=== PATIENT | female | born 1985 | race Caucasian/White ===

== ENCOUNTER 2017-06-11 05:16 | Emergency (ER) | payer SELFPAY ==
[~2017-06-11] VITALS: Ht 165.1 cm; Wt 76.0 kg
[2017-06-11 05:35] VITALS: Ht 165.1 cm; Wt 76.0 kg
[2017-06-11 06:48] LABS: BASOPHIL # 0.1 10^3/ul (0.0-0.1); BASOPHILS % 0.6 % (0.0-2.0); EOSINOPHILS # 0.2 10^3/ul (0.0-0.5); EOSINOPHILS % 2.8 % (0.0-7.0); HEMATOCRIT 37.7 % (37.0-47.0); HEMOGLOBIN 12.6 g/dl (12.0-16.0); LYMPHOCYTES # 1.7 10^3/ul (0.8-2.9); LYMPHOCYTES % 21.2 % (15.0-51.0); MEAN CORPUSCULAR HEMOGLOBIN 27.8 pg (29.0-33.0); MEAN CORPUSCULAR HGB CONC 33.4 g/dl (32.0-37.0); MEAN CORPUSCULAR VOLUME 83.2 fl (82.0-101.0); MEAN PLATELET VOLUME 9.7 fl (7.4-10.4); MONOCYTE # 0.5 10^3/ul (0.3-0.9); MONOCYTES % 6.1 % (0.0-11.0); NEUTROPHILS % 68.9 % (39.0-77.0); PLATELET COUNT 253 10^3/UL (140-415); RED BLOOD COUNT 4.53 10^6/ul (4.20-5.40); RED CELL DISTRIBUTION WIDTH 13.4 % (11.5-14.5); WHITE BLOOD COUNT 7.9 10^3/ul (4.8-10.8)
[2017-06-11 06:53] LABS: ADD UMIC YES; UR ASCORBIC ACID NEGATIVE (NEGATIVE); UR BACTERIA FEW /HPF (NONE SEEN); UR BILIRUBIN (Dip) NEGATIVE (NEGATIVE); UR BLOOD (Dip) 2+ mg/dL (NEGATIVE); UR CLARITY SLIGHTLY CLOUDY (CLEAR); UR COLOR STRAW (YELLOW); UR GLUCOSE (Dip) NEGATIVE (NEGATIVE); UR KETONES (Dip) NEGATIVE (NEGATIVE); UR LEUKOCYTE ESTERASE (Dip) TRACE Leu/ul (NEGATIVE); UR NITRITE (Dip) NEGATIVE (NEGATIVE); UR RBC 0 /HPF (0-5); UR SPECIFIC GRAVITY (Dip) 1.002 (1.003-1.030); UR SQUAMOUS EPITHELIAL CELL FEW /HPF (FEW); UR TOTAL PROTEIN (Dip) NEGATIVE (NEGATIVE); UR UROBILINOGEN (Dip) NEGATIVE (NEGATIVE)
--- NOTE | 2017-06-11 07:05 | RADRPT ---
PROCEDURE: US OB. CLINICAL INDICATION: Vaginal bleeding. TECHNIQUE: Transabdominal and transvaginal imaging of the uterus was performed. COMPARISON: None. FINDINGS: A single intrauterine is present with identification of a gestational sac, pole, and yolk sac. [place] rump length measures 1.1 cm, corresponding to a gestational age of 7 weeks 1 day. Real time examination shows cardiac activity. The heart rate is 137 beats per minute. No myoma or adnexal mass. IMPRESSION: 1. Single viable intrauterine gestation of approximately 7 weeks 1 day. The estimated date of deli very is 01/27/2018 on the basis of this examination. 2. Otherwise, unremarkable examination. RPTAT: EE .Sarmad Savage MD, Date Time Electronically viewed and signed by .Sarmad Savage MD, MD on 06/11/2017 07:11 .C/
[2017-06-11] MEDS ORDERED: ACET500C5 PO (08:29)
[2017-06-11] MEDS ORDERED: NITR-58 PO (08:29)
--- NOTE | 2017-06-11 08:49 | ERD ---
ER Documentation Chief Complaint Date/Time DATE: 06/11/17 TIME: 08:46 Chief Complaint c/o VB started this a.m. Slight pink blood. (+) 8 wks preg. AB2 HPI 31-year-old female patient who is a a 2 presents the ED complaining of slight vaginal bleeding that started this morning. States that when she wiped after urination, she saw slight pink blood. Reports that she also has some slight dysuria. Denies any fever, chills, nausea, vomiting, elevated pain, diarrhea, constipation, vaginal discharge. States that her last menses was on April 13, 2017. States that her LIBRARY HELPER is Dr. Cano. ROS All systems reviewed and are negative except as per history of present illness. Medications Home Meds Active Scripts Nitrofurantoin Monohyd Macrocr* (Macrobid*) 100 Mg Capsr, 100 MG PO BID for 7 Days, CAP Prov:DANIEL RÍOS PA-C 06/11/17 Acetaminophen* (Tylophen*) 500 Mg Capsule, 1 CAP PO Q6H Y for PAIN AND OR ELEVATED TEMP, #20 CAP Prov:DANIEL RÍOS PA-C 06/11/17 Allergies Allergies: Coded Allergies: No Known Allergy (Unverified , 05/08/14) PMhx/Soc History of Surgery: No Anesthesia Reaction: No Hx Neurological Disorder: No Hx Respiratory Disorders: No Hx Cardiac Disorders: No Hx Psychiatric Problems: No Hx Miscellaneous Medical Probl: No Hx Alcohol Use: No Hx Substance Use: No Hx Tobacco Use: No Smoking Status: Never smoker Physical Exam Vitals Vital Signs Date Time Temp Pulse Resp B/P Pulse Ox O2 Delivery O2 Flow Rate FiO2 06/11/17 05:35 98.4 68 18 123/63 99 Physical Exam Const: [id number], well-nourished. In no acute distress. Head: Atraumatic, normocephalic Eyes: Normal Conjunctiva without injection. No purulent discharge. ENT: Normal external ear, nose. Moist oropharynx without tonsillar exudates. Non -erythematous pharynx. Uvula midline. No drooling. No trismus. Neck: No cervical midline tenderness. Full range of motion. No meningismus. No cervical lymphadenopathy. No JVD. Resp: Clear to auscultation bilaterally. No wheezing, rhonchi, rales, or crackles. No accessory muscle use. No retractions. Cardio: Regular rate and rhythm. No murmurs, rubs or gallops. Abd: Soft, nontender, non distended. Normal bowel sounds. No palpable masses. No rebound tenderness. No guarding. Negative McBurney's point. Negative psoas sign. Negative obturator sign. Skin: No petechiae or rashes Back: No midline tenderness. No CVA tenderness. Ext: No cyanosis, or edema. Neur: Awake and alert. Normal gait. Normal coordination. Psych: Normal Mood and Affect Results 24 hrs Laboratory Tests Test 06/11/17 06:05 06/11/17 06:22 Urine Color STRAW Urine Clarity SLIGHTLY CLOUDY Urine pH 6.0 Urine Specific [place] 1.002 Urine Ketones NEGATIVEmg/dL Urine Nitrite NEGATIVEmg/dL Urine Bilirubin NEGATIVEmg/dL Urine Urobilinogen NEGATIVEmg/dL Urine Leukocyte Esterase TRACELeu/ul Urine Microscopic RBC 0/HPF Urine Microscopic WBC 1/HPF Urine Squamous Epithelial Cells FEW/HPF Urine Bacteria FEW/HPF Urine Hemoglobin 2+mg/dL Urine Glucose NEGATIVEmg/dL Urine Total Protein NEGATIVEmg/dl White Blood Count 7.910^3/ul Red Blood Count 4.5310^6/ul Hemoglobin 12.6g/dl Hematocrit 37.7% Mean Corpuscular Volume 83.2fl Mean Corpuscular Hemoglobin 27.8pg Mean Corpuscular Hemoglobin Concent 33.4g/dl Red Cell Distribution Width 13.4% Platelet Count 82637^3/UL Mean Platelet Volume 9.7fl Neutrophils % 68.9% Lymphocytes % 21.2% Monocytes % 6.1% Eosinophils % 2.8% Basophils % 0.6% Nucleated Red Blood Cells % 0.0/100WBC Neutrophils # (Manual) 510^3/ul Lymphocytes # 1.710^3/ul Monocytes # 0.510^3/ul Eosinophils # 0.210^3/ul Basophils # 0.110^3/ul Nucleated Red Blood Cells # 0.010^3/ul Beta HCG, Quantitative 45464.0mIU/ml Procedures/MDM 31-year-old female patient who is a A2 presents the ED complaining of slight vaginal bleeding that started earlier this morning when she was wiping upon urination. Patient is afebrile and nontoxic-appearing. Patient has normal vital signs. An ultrasound, beta-hCG, CBC, type and RH, UA was ordered to evaluate patient. CBC: No evidence of severe infection or anemia Urine: No elevation in nitrites, trace leukocyte esterase, hematuria. Rh: A positive No indication for Rhogam at this time. beta Hc PROCEDURE: US OB. CLINICAL INDICATION: Vaginal bleeding. TECHNIQUE: Transabdominal and transvaginal imaging of the uterus was performed. COMPARISON: None. FINDINGS: A single intrauterine is present with identification of a gestational sac, pole, and yolk sac. [place] rump length measures 1.1 cm, corresponding to a gestational age of 7 weeks 1 day. Real time examination shows cardiac activity. The heart rate is 137 beats per minute. No myoma or adnexal mass. IMPRESSION: 1. Single viable intrauterine gestation of approximately 7 weeks 1 day. The estimated date of delivery is 01/27/2018 on the basis of this examination. 2. Otherwise, unremarkable examination. Patient's bleeding symptoms have stabilized while in the department. Patient has a single IUP of approximately 7 weeks and 1 day. Patient will be treated for a urinary tract infection for trace leukocyte esterase. Low suspicion for symptomatic anemia, ectopic , sepsis, PID, appendicitis, ovarian torsion, tubo-ovarian abscess, surgical abdomen, or other emergent conditions. Patient was educated that there is a risk for threatened . Discharge medications: Tylenol, Macrobid Patient to follow up with [facility]RARY HELPER in 2 days for further evaluation and treatment. Patient is to return sooner to the ED for any worsening symptoms. Patient's questions were answered. Patient understood and agreed with discharge plan. Departure Diagnosis: Primary Impression: Vaginal bleeding in patient at less than 20 weeks ges... Condition: Stable Patient Instructions: Urinary Tract Infections in Women, Bleeding During Early Referrals: COMMUNITY CLINICS YOU HAVE RECEIVED A MEDICAL SCREENING EXAM AND THE RESULTS INDICATE THAT YOU DO NOT HAVE A CONDITION THAT REQUIRES URGENT TREATMENT IN THE EMERGENCY DEPARTMENT. FURTHER EVALUATION AND TREATMENT OF YOUR CONDITION CAN WAIT UNTIL YOU ARE SEEN IN YOUR DOCTORS OFFICE WITHIN THE NEXT 1-2 DAYS. IT IS YOUR RESPONSIBILITY TO MAKE AN APPOINTMENT FOR FOLOW-UP CARE. IF YOU HAVE A PRIMARY DOCTOR --you should call your primary doctor and schedule an appointment IF YOU DO NOT HAVE A PRIMARY DOCTOR YOU CAN CALL OUR PHYSICIAN REFERRAL HOTLINE AT IF YOU CAN NOT AFFORD TO SEE A PHYSICIAN YOU CAN CHOSE FROM THE FOLLOWING [facility] [address] [facility] [address] [facility] [phone] [facility] [address] [facility] [phone] [facility] [facility] [address] [facility]. [facility] YOU HAVE RECEIVED A MEDICAL SCREENING EXAM AND THE RESULTS INDICATE THAT YOU DO NOT HAVE A CONDITION THAT REQUIRES URGENT TREATMENT IN THE EMERGENCY DEPARTMENT. FURTHER EVALUATION AND TREATMENT OF YOUR CONDITION CAN WAIT UNTIL YOU ARE SEEN IN YOUR DOCTORS OFFICE WITHIN THE NEXT 1-2 DAYS. IT IS YOUR RESPONSIBILITY TO MAKE AN APPOINTMENT FOR FOLOW-UP CARE. IF YOU HAVE A PRIMARY DOCTOR --you should call your primary doctor and schedule and appointment IF YOU DO NOT HAVE A PRIMARY DOCTOR YOU CAN CALL OUR PHYSICIAN REFERRAL HOTLINE AT . IF YOU CAN NOT AFFORD TO SEE A PHYSICIAN YOU CAN CHOSE FROM THE FOLLOWING [facility]: [facility] [address] [place] [address] [facility] [address] [place] [address] [facility] [address] [place] [address] [facility] Additional Instructions: Call your [employer]RARY HELPER TOMORROW for an appointment during the next 2-3 days.See the doctor sooner or return here if your condition worsens before your appointment time. DANIEL RÍOS PA-C Jun 11, 2017 08:49 DANIEL RÍOS PA-C Jun 11, 2017 08:49
== END 2017-06-11 08:50 | disposition home or self-care (01) ==
LOC: FTE 05:16
DX: O20.9 Hemorrhage in early pregnancy, unspecified (principal); Z3A.01 Less than 8 weeks gestation of pregnancy
CPT/HCPCS: 36415; 76801; 76817; 84702; 85025; 86900; 86901

== ENCOUNTER 2017-09-02 19:22 | Emergency (ER) | payer MEDICAID ==
[~2017-09-02] VITALS: Ht 165.1 cm; Wt 80.0 kg
[~2017-09-02 19:22] MED LIST: ACET500C5 PO; NITR-58 PO
[2017-09-02 19:30] VITALS: Ht 165.1 cm; Wt 80.0 kg
[2017-09-02] MEDS ORDERED: AMOX500C2 PO ×2 (21:34→21:39)
[2017-09-02] MEDS ORDERED: CIPR7.5D4 BOTH EARS (21:35)
[2017-09-02] MEDS ORDERED: ACET500C5 PO (21:36)
--- NOTE | 2017-09-02 21:43 | ERD ---
ER Documentation Chief Complaint Chief Complaint BILATERAL EAR PAIN, DENIES DRAINAGE, DIZZINESS, RINGING IN EARS HPI This a 31-year-old female who presents to the emergency department today complaining of bilateral ear pain but her left worse than her right. States it has been like this for the past 2 days. States she has taken Tylenol. States she is 19 weeks . She has had allergies as well. Denies any fevers or chills. ROS All systems reviewed and are negative except as per history of present illness. Medications Home Meds Active Scripts Amoxicillin* (Amoxicillin*) 500 Mg Cap, 500 MG PO TID for 7 Days, CAP Prov:CARL CLEMONS PA-C 09/02/17 Acetaminophen* (Tylophen*) 500 Mg Capsule, 1 CAP PO Q6H Y for PAIN AND OR ELEVATED TEMP, #30 CAP Prov:CARL CLEMONS PA-C 09/02/17 Ciprofloxacin Hcl/Dexameth (Ciprodex Otic Suspension) 7.5 Ml Drops.susp, 4 DROP BOTH EARS BID for 7 Days, EA Prov:CARL CLEMONS PA-C 09/02/17 Discontinued Scripts Amoxicillin* (Amoxicillin*) 500 Mg Cap, 500 MG PO TID for 10 Days, CAP Prov:CARL CLEMONS PA-C 09/02/17 Allergies Allergies: Coded Allergies: No Known Allergy (Unverified , 09/02/17) PMhx/Soc Medical and Surgical Hx: pt denies Medical Hx, pt denies Surgical Hx Hx Alcohol Use: No Hx Substance Use: No Hx Tobacco Use: No Smoking Status: Never smoker Physical Exam Vitals Vital Signs Date Time Temp Pulse Resp B/P Pulse Ox O2 Delivery O2 Flow Rate FiO2 09/02/17 19:30 98.3 78 18 126/59 99 Physical Exam Const: NAD Head: Atraumatic Eyes: Normal Conjunctiva ENT: Right TM erythema with mild drainage. Left TM with drainage. Non tender mastoids. Unable to visualize TM. Nose no drainage. Throat erythema no exudate. Neck: Full range of motion..~ No meningismus. Resp: Clear to auscultation bilaterally Cardio: Regular rate and rhythm, no murmurs Abd: Soft, non tender, non distended. Normal bowel sounds Skin: No petechiae or rashes Back: No midline or flank tenderness Ext: No cyanosis, or edema Neur: Awake and alert Psych: Normal Mood and Affect Procedures/MDM This is a 31-year-old female presents to the emergency department today complaining of bilateral ear pain for the past 2 days. On physical exam patient has evidence of otitis externa. I am unable to visualize the TM on 1 of her ears and I am unsure if this is due to serous otitis media. Given this I will give the patient a prescription for amoxicillin and Ciprodex. I have explained that this is safe in . Patient is afebrile and otherwise well-appearing. Low suspicion for mastoiditis. At this time the patient is stable for discharge and outpatient management. Patient should follow up with their PCP in the next 1-2 days. They may return to the emergency department sooner for any persistent or worsening of symptoms. Patient understood and agreed with the plan. Discussed the patient with Dr. Murillo and she is in agreement with the plan. Departure Diagnosis: Primary Impression: Acute pain of both ears Condition: Fair Patient Instructions: Otitis Externa (Child) Referrals: your PCP Additional Instructions: Call your primary care doctor TOMORROW for an appointment during the next 1-2 days.See the doctor sooner or return here if your condition worsens before your appointment time. Take antibiotics as prescribed. Take Tylenol for pain CARL CLEMONS PA-C Sep 02, 2017 21:43
== END 2017-09-02 21:55 | disposition home or self-care (01) ==
LOC: FTE 19:22 → MERGE 19:22 → FTE 21:55
DX: O99.89 Other specified diseases and conditions complicating pregnancy, childbirth and the puerperium (principal); H60.93 Unspecified otitis externa, bilateral; Z3A.19 19 weeks gestation of pregnancy
CPT/HCPCS: 99284